=== PATIENT | male | born 1985 | race Caucasian/White ===

== ENCOUNTER 2018-07-06 14:37 | Emergency (ER) | payer SELFPAY ==
[2018-07-06] MEDS ORDERED: MORPHINE 4 MG/ML SYR ONE (15:07)
[2018-07-06] MEDS ORDERED: KETOROLAC 30 MG/ML INJ ONE (15:08)
[2018-07-06] MEDS ORDERED: ONDANSETRON 4 MG/2 ML VIAL ONE (15:09)
[2018-07-06] MEDS ORDERED: NA CHLORIDE 0.9% 1,000 ML ONE (15:09)
[2018-07-06 15:14] LABS: Absolute Lymphocytes (CBC) 2.7 K/uL (0.7-4.9); Absolute Monocytes 0.7 K/uL (0.1-1.3); Absolute Neutrophil 6.8 K/uL (1.8-8.0); Basophils % 0.6 % (0-1.3); Eosinophils % 1.8 % (0-4.4); Hematocrit 45.3 % (39.6-49.0); MPV 9.3 fL (7.6-11.3); Monocytes % 6.6 % (3.3-12.3); RBC Red Blood Cell Count 4.94 M/uL (4.33-5.43)
[2018-07-06 15:30] LABS: Albumin 4.6 g/dL (3.4-5.0); Bilirubin Direct 0.2 mg/dL (0-0.2); Bilirubin Total 0.9 mg/dL (0.2-1.0); Potassium 3.8 mmol/L (3.5-5.1); Protein, Total 7.6 g/dL (6.4-8.2)
[2018-07-06] MEDS ORDERED: MAGNESIUM SULFATE 1 gm IVPB 1 GM/100 ML BAG IV ONE (16:12)
--- NOTE | 2018-07-06 17:34 | EDPHYS ---
Physician Documentation [facility] Name: Abner Cruz Age: 33 yrs Sex: Male : 1985 Arrival Date: 07/06/2018 Time: 14:38 Bed 30 Private MD: Unknown, Unknown ED Physician Andrew Lora HPI: 07/06 15:15 This 33 yrs old Male presents to ER via Ambulatory with complaints of cp Possible Kidney Stone. 15:15 The patient complains of pain in the right mid back. cp 15:15 Onset: The symptoms/episode began/occurred today. Associated signs and symptoms: cp Pertinent negatives: diarrhea, fever, pain radiating to the lower extremities, vomiting. The patient has experienced similar episodes in the past, today's symptoms are similar, to when the patient was apparently diagnosed with kidney stones. Historical: - Allergies: 14:51 No Known Allergies; sv - PMHx: 14:51 Kidney stones; sv - Immunization history:: Flu vaccine status is unknown. - Social history:: Smoking status: unknown Patient uses alcohol, Patient/guardian denies using street drugs, IV drugs. - Ebola Screening: : No symptoms or risks identified at this time. ROS: 15:20 Constitutional: Negative for body aches, chills, fever, poor PO intake. cp 15:20 Eyes: Negative for injury, pain, redness, and discharge. cp 15:20 ENT: Negative for drainage from ear(s), ear pain, sore throat, difficulty swallowing, difficulty handling secretions. 15:20 Cardiovascular: Negative for chest pain, palpitations. 15:20 Respiratory: Negative for cough, shortness of breath, wheezing. 15:20 Abdomen/GI: Negative for vomiting, diarrhea, constipation, black/tarry stool, rectal bleeding. 15:20 Back: Positive for flank pain, on the right. 15:20 : Negative for urinary symptoms. 15:20 Skin: Negative for cellulitis, rash. 15:20 Neuro: Negative for altered mental status, headache, weakness. 15:20 All other systems are negative. Exam: 15:30 Constitutional: The patient appears in no acute distress, alert, awake, non-toxic, well cp developed, well nourished, uncomfortable. 15:30 Head/Face: Normocephalic, atraumatic. cp 15:30 Eyes: Periorbital structures: appear normal, Conjunctiva: normal, no exudate, no cp injection, Sclera: no appreciated abnormality, Lids and lashes: appear normal, bilaterally. 15:30 ENT: External ear(s): are unremarkable, Nose: is normal, Mouth: is normal, Posterior cp pharynx: is normal, airway is patent. 15:30 Chest/axilla: Inspection: normal, Palpation: is normal, no crepitus, no tenderness. 15:30 Cardiovascular: Rate: tachycardic, Rhythm: regular. 15:30 Respiratory: the patient does not display signs of respiratory distress, Respirations: normal, no use of accessory muscles, no retractions, no splinting, no tachypnea, labored breathing, is not present, Breath sounds: are clear throughout, no decreased breath sounds, no stridor, no wheezing. 15:30 Abdomen/GI: Inspection: abdomen appears normal, Bowel sounds: active, all quadrants, Palpation: abdomen is soft and non-tender, in all quadrants, rebound tenderness, is not appreciated, voluntary guarding, is not appreciated, involuntary guarding, is not appreciated. 15:30 Back: CVA tenderness, that is mild, is noted on the right. 15:30 Skin: cellulitis, is not appreciated, no rash present. Vital Signs: 14:51 BP 151 / 76; Pulse 123; Resp 30; Pulse Ox 95% ; Weight 108.86 kg; Height 6 ft. 4 in. sv (193.04 cm); 16:00 BP 125 / 78; Pulse 80; Resp 18; Pulse Ox 100% on R/A; mg2 17:48 BP 130 / 78; Pulse 90; Resp 18; Pulse Ox 100% on R/A; Pain 0/10; mg2 14:51 Body Mass Index 29.21 (108.86 kg, 193.04 cm) sv MDM: 14:53 Patient medically screened. cp 15:35 Refusal of service: The patient/guardian displays adequate decision making capability cp and despite a detailed discussion of alternatives, benefits, risks, and consequences refuses: CT Scan. 17:30 Data reviewed: vital signs, nurses notes, lab test result(s), radiologic studies, plain cp films. 17:30 Response to treatment: the patient's symptoms have markedly improved after treatment, cp VSS. Pain markedly improved, and as a result, I will discharge patient. 07/06 14:56 Order name: Basic Metabolic Panel; Complete Time: 15:40 sv 07/06 15:40 Interpretation: Normal except: CL 110; GLUC 134; GFR 66. cp 07/06 14:56 Order name: CBC with Diff; Complete Time: 15:40 sv 07/06 14:56 Order name: Creatinine for Radiology; Complete Time: 15:40 sv 07/06 14:56 Order name: Hepatic Function; Complete Time: 15:40 sv 07/06 14:56 Order name: Lipase; Complete Time: 15:40 sv 07/06 15:41 Order name: Urine Microscopic Only cp 07/06 15:25 Order name: XRAY KUB; Complete Time: 17:46 cp 07/06 16:56 Order name: Urine Dipstick--Ancillary (enter results) eb 07/06 14:56 Order name: IV Saline Lock; Complete Time: 15:04 sv 07/06 14:56 Order name: Labs collected and sent; Complete Time: 15:04 sv 07/06 15:41 Order name: Urine Dipstick-Ancillary (obtain specimen); Complete Time: 16:54 cp Administered Medications: 15:04 Drug: Zofran 4 mg Route: IVP; Site: left antecubital; mg2 15:49 Follow up: Response: No adverse reaction; Marked relief of symptoms mg2 15:04 Drug: TORadol 30 mg Route: IVP; Site: left antecubital; mg2 15:49 Follow up: Response: No adverse reaction; Marked relief of symptoms mg2 15:04 Drug: NS 0.9% 1000 ml Route: IV; Rate: 1000 ml; Site: left antecubital; mg2 15:50 Follow up: Response: No adverse reaction; IV Status: Completed infusion mg2 15:05 Drug: morphine 4 mg Route: IVP; Site: left antecubital; mg2 15:49 Follow up: Response: No adverse reaction; Marked relief of symptoms mg2 16:11 Drug: Magnesium Sulfate 1 grams Route: IVPB; Infused Over: 1 hrs; Site: left mg2 antecubital; 17:18 Follow up: Response: No adverse reaction; IV Status: Completed infusion mg2 Disposition: 07/06/18 17:33 Discharged to Home. Impression: Right flank pain. - Condition is Stable. - Discharge Instructions: Flank Pain, Adult, Kidney Stones, Dietary Guidelines to Help Prevent Kidney Stones. - Prescriptions for Zofran 4 mg Oral Tablet - take 1 tablet by ORAL route every 12 hours As needed; 20 tablet. Flomax 0.4 mg Oral Capsule, Sust. Release 24 hr - take 1 capsule by ORAL route once daily As needed 1/2 hour following the same meal each day; 5 capsule. Cipro 500 mg Oral Tablet - take 1 tablet by ORAL route every 12 hours for 7 days; 14 tablet. Tramadol 50 mg Oral Tablet - take 1 tablet by ORAL route every 8 hours as needed; 12 tablet. - Medication Reconciliation Form, Thank You Letter, Antibiotic Education, Prescription Opioid Use, Work release form form. - Follow up: Kun Skinner MD; When: 2 - 3 days; Reason: symptoms continue. - Problem is new. - Symptoms have improved. Addendum: 07/09/2018 05:42 Co-signature as Attending Physician, Andrew Lora MD I agree with the assessment and c valera plan of care. Signatures: Dispatcher [employer] Caryl Garza RN RN Andrew Roberson MD MD cha Page, Corey, APPLE PA cp Baltazar Yang, RN RN mg2 Corrections: (The following items were deleted from the chart) 07/06 15:27 15:21 Stone Protocol+CT.RAD.BRZ ordered. [facility] 17:50 17:33 07/06/2018 17:33 Discharged to Home. Impression: Right flank pain. Condition is mg2 Stable. Forms are Medication Reconciliation Form, Thank You Letter, Antibiotic Education, Prescription Opioid Use. Follow up: Kun Skinner; When: 2 - 3 days; Reason: symptoms continue. Problem is new. Symptoms have improved. cp
--- NOTE | 2018-07-06 17:34 | ER ---
Nurse's Notes [facility] Name: Abner Cruz Age: 33 yrs Sex: Male : 1985 Arrival Date: 07/06/2018 Time: 14:38 Bed 30 Private MD: Unknown, Unknown Diagnosis: Right flank pain Presentation: 07/06 14:50 Presenting complaint: Patient states: back pain started today, hx kidney stones. sv Transition of care: patient was not received from another setting of care. Onset of symptoms was July 06, 2018. Care prior to arrival: None. 14:50 Method Of Arrival: Ambulatory sv 14:50 Acuity: HORACIO 2 sv 15:07 Risk Assessment: Do you want to hurt yourself or someone else? Patient reports no mg2 desire to harm self or others. Initial Sepsis Screen: Does the patient meet any 2 criteria? No. Patient's initial sepsis screen is negative. Does the patient have a suspected source of infection? No. Patient's initial sepsis screen is negative. Historical: - Allergies: 14:51 No Known Allergies; sv - PMHx: 14:51 Kidney stones; sv - Immunization history:: Flu vaccine status is unknown. - Social history:: Smoking status: unknown Patient uses alcohol, Patient/guardian denies using street drugs, IV drugs. - Ebola Screening: : No symptoms or risks identified at this time. Screenin:06 Abuse screen: Denies threats or abuse. Denies injuries from another. Nutritional mg2 screening: No deficits noted. Tuberculosis screening: No symptoms or risk factors identified. Fall Risk IV access (20 points). Assessment: 15:05 General: Appears uncomfortable, Behavior is restless. Pain: Complains of pain in right mg2 flank Pain does not radiate. Pain at worst was 10 out of 10 on a pain scale. Quality of pain is described as aching, Pain began gradually, 1 day ago. Is intermittent. Neuro: Level of Consciousness is awake, alert, obeys commands, Oriented to person, place, time, situation. Cardiovascular: Capillary refill < 3 seconds Patient's skin is warm and dry. Respiratory: Airway is patent Respiratory effort is even, unlabored, Respiratory pattern is regular, symmetrical. GI: Bowel sounds present X 4 quads. Abd is soft and non tender. : Reports pain in right flank(s). EENT: No signs and/or symptoms were reported regarding the EENT system. Derm: Skin is intact, is healthy with good turgor, Skin is pink, warm \T\ dry. normal. Musculoskeletal: Circulation, motion, and sensation intact. Capillary refill < 3 seconds. 16:00 Reassessment: Patient denies pain at this time. mg2 Vital Signs: 14:51 BP 151 / 76; Pulse 123; Resp 30; Pulse Ox 95% ; Weight 108.86 kg; Height 6 ft. 4 in. sv (193.04 cm); 16:00 BP 125 / 78; Pulse 80; Resp 18; Pulse Ox 100% on R/A; mg2 17:48 BP 130 / 78; Pulse 90; Resp 18; Pulse Ox 100% on R/A; Pain 0/10; mg2 14:51 Body Mass Index 29.21 (108.86 kg, 193.04 cm) sv ED Course: 14:38 Patient arrived in ED. ag5 14:38 Unknown, Unknown is Private Physician. ag5 14:51 Triage completed. sv 14:53 Baltazar Yang RN is Primary Nurse. mg2 14:53 Andrwe Goins PA is PHCP. cp 14:53 Andrew Lora MD is Attending Physician. cp 15:06 No provider procedures requiring assistance completed. Inserted saline lock: 20 gauge mg2 in left antecubital area, using aseptic technique. Blood collected. 15:06 Patient has correct armband on for positive identification. Pulse ox on. NIBP on. Door mg2 closed. Warm blanket given. 15:07 Arm band placed on. mg2 16:00 XRAY KUB In Process Unspecified. EDMS 17:32 Kun Skinner MD is Referral Physician. cp 17:49 IV discontinued, intact, bleeding controlled, No redness/swelling at site. Pressure mg2 dressing applied. Administered Medications: 15:04 Drug: Zofran 4 mg Route: IVP; Site: left antecubital; mg2 15:49 Follow up: Response: No adverse reaction; Marked relief of symptoms mg2 15:04 Drug: TORadol 30 mg Route: IVP; Site: left antecubital; mg2 15:49 Follow up: Response: No adverse reaction; Marked relief of symptoms mg2 15:04 Drug: NS 0.9% 1000 ml Route: IV; Rate: 1000 ml; Site: left antecubital; mg2 15:50 Follow up: Response: No adverse reaction; IV Status: Completed infusion mg2 15:05 Drug: morphine 4 mg Route: IVP; Site: left antecubital; mg2 15:49 Follow up: Response: No adverse reaction; Marked relief of symptoms mg2 16:11 Drug: Magnesium Sulfate 1 grams Route: IVPB; Infused Over: 1 hrs; Site: left mg2 antecubital; 17:18 Follow up: Response: No adverse reaction; IV Status: Completed infusion mg2 Outcome: 17:33 Discharge ordered by . summer 17:49 Discharged to home ambulatory. mg2 17:49 Condition: stable 17:49 Discharge instructions given to patient, Instructed on discharge instructions, follow up and referral plans. medication usage, Demonstrated understanding of instructions, follow-up care, medications, Prescriptions given X 4. 17:50 Patient left the ED. mg2 Signatures: Dispatcher [employer] Caryl Garza RN RN Andrew Goins, APPLE PA Tamiko Spaulding 1 Baltazar Yang RN RN mg2 Polly Cotton 5 Corrections: (The following items were deleted from the chart) 15:26 15:22 Patient moved to [place] kw1 2
--- NOTE | 2018-07-06 17:36 | RAD REPORT ---
EXAM DESCRIPTION: RAD - Abdomen 1 View (KUB) - 07/06/2018 3:56 pm CLINICAL HISTORY: Abdomen pain. FINDINGS: Air is present within nondilated small bowel and portions of the colon in a nonspecific fa shion A moderate amount of stool is present throughout the colon. 3 millimeter density overlies the right kidney which may represent a calculus or contents within ashely l A 2 millimeter density overlies the left kidney which may represent a calculus or contents within bow el
[2018-07-06 17:38] LABS: Urine Blood NEGATIVE (NEG); Urine Glucose NEGATIVE (NEG); Urine Protein 1+ (NEG); Urine Specific Gravity 1.025 (1.005-1.030)
[2018-07-06 17:51] LABS: Urine Bacteria <20 /HPF (NONE SEEN); Urine RBC <5 /HPF (NONE SEEN)
[2018-07-06 17:52] LABS: Urine Amorphous Sediment TRACE /HPF (NONE SEEN); Urine Culture Reflex Order NOT NEEDED; Urine Mucus 3+ /HPF (NONE SEEN)
== END 2018-07-06 17:50 | disposition home or self-care (01) ==
LOC: ER 14:37
DX: R10.9 Unspecified abdominal pain (principal); Z87.442 Personal history of urinary calculi
CPT/HCPCS: 36415; 74018; 80048; 80076; 81003; 81015; 83690; 85025; 96361; 96365; 96375; 99284; J2405; J3475; J7030